=== PATIENT | male | born 1975 | race African-American/Black ===

== ENCOUNTER 2016-07-17 18:12 | Emergency (ER) | payer OTHER ==
[2016-07-17] MEDS ORDERED: FLUORI-I-STRIP OPH ONE (20:00)
[2016-07-17] MEDS ORDERED: ALCAINE 0.5% OPHTH SOLN RIGHT EYE ONE (20:00)
[2016-07-17] MEDS ORDERED: GENTAMICIN 0.3% OPH DROPS RIGHT EYE ONE (20:48)
--- NOTE | 2016-07-17 20:51 | PROVIDER DOCUMENTATION ---
HPI-EENT General - General Chief Complaint: Eye Injury Stated Complaint: RT EYE COMPLAINT Time Seen by Provider: 07/17/16 19:46 Source: patient Allergies/Adverse Reactions: Patient Allergies Allergy/AdvReac Type Severity Reaction Status Date / Time No Known Allergies Allergy Verified 07/17/16 19:55 Home Medications: Home Medication List Medication Instructions Recorded Confirmed Last Taken Type Gentamicin 0.3% Oph Drops 2 drop RIGHT EYE TID #1 bottle 07/17/16 Unknown Rx - History of Present Illness-EENT General Nature of Presenting Problem: This pt presents today c complaints of R eye pain after he accidentally struck himself c a cord while helping his friend while a house. No loss of vision. No bleeding. no other issues or complaints. EENT Location: reports: eye (R) Quality of Pain: reports: aching Severity: reports: moderate Onset/Duration: reports: 4-6 hours ago Timing: reports: still present Prearrival Treatment: Initiated no prearrival treatment Similar Symptoms Previously?: Yes (previous corneal abrasion) Recently seen or treated by another doctor?: No Review of Systems - Adult - REVIEW OF SYSTEMS - ADULT Constitutional: reports: no symptoms reported. denies: chills, fatique Eyes: reports: see HPI, eye pain, redness. denies: discharge, dry eyes, blurred vision Ears, Nose, Mouth & Throat: reports: no symptoms reported. denies: ear discharge, ear pain Cardiovascular: reports: no symptoms reported. denies: chest pain, edema Respiratory: reports: no symptoms reported. denies: chronic cough, cough Gastrointestinal: reports: no symptoms reported. denies: abdominal pain, hematemesis Genitourinary: reports: no symptoms reported. denies: dysuria, discharge Musculoskeletal: reports: no symptoms reported. denies: bone pain, back pain Integumentary: reports: no symptoms reported. denies: hives, hair loss Neurological: reports: no symptoms reported. denies: ataxia, dizziness/vertigo Psychiatric: reports: no symptoms reported. denies: anxiety, anti-depressant use Endocrine: reports: no symptoms reported Hematologic/Lymphatic: reports: no symptoms reported Allergic/Immunologic: reports: no symptoms reported All Other Systems: Reviewed and Negative Past History - Adult - PAST MEDICAL HISTORY-ADULT Review of Records: reports: Old Records Reviewed, Nursing Assessment Review, Medications Reviewed, Social history reviewed & non-contributory. Major Childhood Illnesses: reports: denies history Cardiovascular: reports: denies history Respiratory: reports: denies history Gastrointestinal: reports: denies history Obstetrical/Gynecological: reports: denies history Genitourinary: reports: kidney stones Musculoskeletal: reports: denies history Neurological: reports: denies history Psychiatric: reports: denies history Endocrine/Immune: reports: denies history Other Conditions: reports: denies history - PRIOR SURGERIES/PROCEDURES Surgical/Procedure History: reports: none - PRIOR HOSPITALIZATIONS Prior Hospitalizations: reports: none - IMMUNIZATION STATUS Childhood Immunizations: See Nurse Assessment Flu Vaccine: See Nurse Assessment - FAMILY HISTORY Family History: other (not contributory) Physical Exam- EENT - Physical Exam EENT Initial Vital Signs Reviewed: Yes General Appearance: appears well, alert, no apparent distress Eye Exam: right eye: corneal abrasion (6 o'clock), left eye: normal inspection, bilateral eye: PERRL, EOMI Nasal Exam: normal inspection Throat Exam: normal mouth inspection, pharynx normal Neck: non-tender, full range of motion, supple Respiratory: chest non-tender, lungs clear, normal breath sounds Cardiovascular: normal peripheral pulses, regular rate, rhythm Abdominal Exam: normal bowel sounds, non tender, soft Back Exam: normal inspection, no CVA tenderness, no vertebral tenderness Extremity: normal range of motion, non-tender Integumentary: normal color, normal turgor, warm/dry Neurologic: grossly normal, no motor/sensory deficits Progress - PLAN OF CARE/RESULTS Progress/Plan/Lab Results: Orders Category Date Time Status Fluorescein Strip [[id number]] Med 07/17/16 20:00 Discontinued 1 each OPH NOW ONE Gentamicin 0.3% Oph Drops Med 07/17/16 20:48 Discontinued 1 ml RIGHT EYE NOW ONE Proparacaine 0.5% Ophth Soln [Alcaine 0.5% Ophth Soln] Med 07/17/16 20:00 Discontinued 1 ml RIGHT EYE NOW ONE Vital Signs Temp Pulse Resp BP Pulse Ox 07/17/16 18:33 98.2 F 78 16 115/68 100 No Known Allergies Allergy (Verified 07/17/16 19:55) No Home Medications 07/17/16 Departure - Departure Time of Disposition Order: 20:50 DIAGNOSIS: Corneal abrasion, right Qualifiers: Encounter type: initial encounter Qualified Code(s): S05.01XA - Injury of conjunctiva and corneal abrasion without foreign body, right eye, initial encounter Disposition: HOME 01 Certified Medical Emergency: Urgent Condition: Good Additional Instructions: Take medication as prescribed. Follow up with an [employer] certified internetwork expert as needed. ED Follow Up Instructions: You have been treated by a care provider in the Emergency Department. These instructions are being provided to you so you can have an understanding of how to care for yourself upon discharge. Upon discharge from the Emergency Department, you are responsible for making arrangements for follow-up care by a physician of your choice. Take all prescribed medications as directed. Return to the Emergency Department immediately for any new or worsening symptoms. You may call the Physician Referral phone number at [phone] to obtain a list of Physicians who are taking new patients. Prescriptions: Gentamicin 0.3% Oph Drops 2 drop RIGHT EYE TID #1 bottle Referrals: Giovana Castañeda MD [Primary Care Provider] - Emerita Goodwin MD [STAFF PHYSICIAN] - Attestation - Physician/ CHANDRIKA Attestation Patient care was provided by Advanced Practice Provider:: Yes Advanced Practice Provider:: Deuce Hernandez Advanced Practice Provider documentation review:: The Mid-level provider documentation, treatment plan and medical decision making was reviewed by the physician who agrees with all treatment and medical decision making by the P.
[2016-07-17 21:57] VITALS: BP 127/85
== END 2016-07-17 22:08 | disposition home or self-care (01) ==
LOC: ED 18:12
DX: S05.01XA Injury of conjunctiva and corneal abrasion without foreign body, right eye, initial encounter (principal); H57.11 Ocular pain, right eye; W22.8XXA Striking against or struck by other objects, initial encounter